=== PATIENT | male | born 2000 | race Caucasian/White ===

== ENCOUNTER 2018-04-09 07:30 | Emergency (ER) | payer OTHER ==
[2018-04-09 07:37] VITALS: BP 137/91
[2018-04-09] MEDS ORDERED: LIDOCAINE PATCH 5% TOP STA (09:21)
--- NOTE | 2018-04-09 09:24 | ED Physician Documentation ---
History of Present Illness - Stated complaint Stated Complaint: BACK PX - Chief complaint Chief Complaint: Back Pain - Additonal information Additional information: hx from pt 17 y/o AD [place] male hx back pain bent over to put on boots yesterday and felt pain and pop to lower r back near pelvic ring no fever no abd pain no saddle anesthesia no incont no numbness no weakness no radiation down the leg Review of Systems Constitutional: denies: Fever Cardiac: denies: Chest pain / pressure Respiratory: denies: Dyspnea GI: denies: Abdominal Pain : denies: Incontinent Musculoskeletal: reports: Back pain Neurologic: denies: Focal weakness, Numbness Endocrine: denies: Easy bruising / bleeding Immunocompromised: denies: Immunocompromised PD PAST MEDICAL HISTORY - Past Medical History Past Medical History: No Musculoskeletal: Chronic back pain - Present Medications Home Medications: Ambulatory Orders Medication Instructions Recorded Confirmed Cyclobenzaprine [Flexeril] 10 mg PO TID PRN #20 tablet 04/09/18 Ibuprofen [Motrin] 800 mg PO Q8H PRN #30 tablet 04/09/18 Lidocaine Patch 5% [Lidoderm Patch] 1 patch TOP DAILY PRN #10 patch 04/09/18 - Allergies Allergies/Adverse Reactions: Allergies Allergy/AdvReac Type Severity Reaction Status Date / Time No Known Drug Allergies Allergy Verified 04/09/18 07:37 - Social History Does the pt smoke?: No Smoking Status: Never smoker Does the pt drink ETOH?: No Does the pt have substance abuse?: No PD ED PE NORMAL - Vitals Vital signs reviewed: Yes - Neck Neck: Supple, no meningeal sign - Cardiac Cardiac: RRR - Respiratory Respiratory: No respiratory distress - Abdomen Abdomen: Soft, Non tender, Other (no pulsatile mass) - Back Back: No spinal TTP, Other (TTP lower right muscular near posterior iliac spine) - Derm Derm: Normal color - Neuro Neuro: Alert and oriented X 3, negative developer 2-12 intact, No motor deficit, No sensory deficit, Other (denies saddle anesthesia, hip flexion knee ext foot dorsi p lantar and great toe ext 5/5, nl sensation, neg SLR, no clonus) Results - Vitals Vitals: Vital Signs - 24 hr 04/09/18 07:34 Temperature 36.4 C L Heart Rate 678 H Respiratory 16 Rate Blood Pressure 137/91 H O2 Saturation 100 Oxygen O2 Source Room air Departure - Departure Disposition: Home, Self Care Clinical Impression: Back pain Qualifiers: Back pain location: low back pain Chronicity: acute Back pain laterality: right Sciatica presence: without sciatica Qualified Code(s): M54.5 - Low back pain Condition: Good Instructions: ED Low Back Pain Injury Follow-Up: HILDA Snow [Provider Group] Prescriptions: Cyclobenzaprine [Flexeril] 10 mg PO TID PRN #20 tablet PRN Reason: Spasms Ibuprofen [Motrin] 800 mg PO Q8H PRN #30 tablet PRN Reason: Pain Lidocaine Patch 5% [Lidoderm Patch] 1 patch TOP DAILY PRN #10 patch PRN Reason: pain Forms: Activity restrictions
== END 2018-04-09 09:39 | disposition home or self-care (01) ==
LOC: ED 07:30
DX: G89.29 Other chronic pain (principal); M54.5 Low back pain
CPT/HCPCS: 99283; A9270

== ENCOUNTER 2020-02-06 10:47 | Outpatient (CLI) | payer OTHER ==
--- NOTE | 2020-02-06 14:52 | CT Report ---
PROCEDURE: UPPER EXTREMITY WO - LT INDICATIONS: DISPLACED FRACTURE OF RADIUS HEAD TECHNIQUE: Noncontrast 3 mm axial sections acquired of the elbow, with coronal and sagittal reformats. COMPARISON: None. FINDINGS: Image quality: Excellent. Bones: There is a comminuted, minimally displaced fracture of the radial head extending into the rad iocapitellar joint. There is a 2 mm step-off at the articular surface. The included portions of the h umerus and ulna are intact. Soft tissues: There is a moderate joint effusion. The articular cartilages, ligaments, and tendons a re not well evaluated with CT. No soft tissue mass is seen. IMPRESSION: Comminuted, minimally-displaced, intra-articular fracture fracture of the radial head. There is up to 2 mm step-off at the radiocapitellar articular surface. Moderate joint effusion. Reviewed by: Thomas Germain MD on 02/06/2020 2:51 PM PDT Approved by: Thomas Germain MD on 02/06/2020 2:51 PM PDT Station ID: [id number]
== END 2020-02-06 10:48 | disposition home or self-care (01) ==
LOC: DI 10:47
PROVIDERS: ATTEND Orthopaedic Surgery
DX: S52.122A Displaced fracture of head of left radius, initial encounter for closed fracture (principal)

== ENCOUNTER 2021-07-28 10:21 | Emergency (ER) | payer OTHER ==
[2021-07-28 10:42] LABS: BASOPHILS % (AUTO) 0.3 %; EOSINOPHILS # (AUTO) 0.1 10^3/uL (0.0-0.7); EOSINOPHILS % (AUTO) 1.8 %; HCT - HEMATOCRIT 43.4 % (42.0-52.0); HGB - HEMOGLOBIN 14.7 g/dL (14.0-18.0); LYMPHOCYTES # (AUTO) 0.6 10^3/uL (1.5-3.5); MEAN CORPUSCULAR HEMOGLOBIN 28.6 pg (27.0-31.0); MEAN CORPUSCULAR HGB CONC 33.9 g/dL (32.0-36.0); MEAN CORPUSCULAR VOLUME 84.4 fL (80.0-94.0); MEAN PLATELET VOLUME 9.7 fL (7.4-11.4); MONOCYTES % (AUTO) 13.1 %; NEUTROPHILS % (AUTO) 76.5 %; PLT - PLATELET COUNT 177 10^3/uL (130-450); RED BLOOD COUNT 5.14 10^6/uL (4.70-6.10); RED CELL DISTRIBUTION WIDTH 12.2 % (12.0-15.0); WHITE BLOOD COUNT 7.8 x10^3/uL (4.8-10.8)
--- OUTSIDE RECORDS SUMMARY | 2021-07-28 10:46 | EXTERNAL MEDICAL SUMMARY RPT | Continuity of Care Document ---
:2000 Author Organization [facility] Address [address] [place] [address] Phone Allergies No information. Encounters No information. Medications No information. Problems date description facility [id number] Encounter for general adult medical [facility] abno Results No information.
[2021-07-28 11:18] LABS: GLUCOSE, URINE (UA) NEGATIVE (NEGATIVE); KETONES,URINE (UA) 15 mg/dL (NEGATIVE); LEUKOCYTE ESTERASE, URINE NEGATIVE (NEGATIVE); NITRITE,URINE NEGATIVE (NEGATIVE); OCCULT BLOOD,URINE NEGATIVE (NEGATIVE); PROTEIN,URINE NEGATIVE (NEGATIVE); UROBILINOGEN,URINE 0.2 (NORMAL) E.U./dL (NORMAL)
[2021-07-28 11:22] LABS: CLARITY,URINE CLEAR (CLEAR)
[2021-07-28 11:25] LABS: ALBUMIN 4.5 g/dL (3.2-5.5); ALBUMIN/GLOBULIN RATIO 1.2 (1.0-2.2); BILIRUBIN,TOTAL 0.9 mg/dL (0.2-1.0); CALCIUM 9.4 mg/dL (8.5-10.3); CREATININE 0.9 mg/dL (0.6-1.2); POTASSIUM 4.4 mmol/L (3.5-5.0); TOTAL PROTEIN 8.3 g/dL (6.7-8.2)
[2021-07-28 11:28] LABS: BILIRUBIN,URINE NEGATIVE (NEGATIVE); ICTOTEST,URINE NEGATIVE
[2021-07-28] MEDS ORDERED: SODIUM CHLORIDE 0.9% 1,000 ML IV STA (13:10)
--- NOTE | 2021-07-28 13:12 | ED Physician Documentation ---
PD HPI ABD PAIN - Stated complaint Stated Complaint: FEVER/STOMACH PX - Chief complaint Chief Complaint: Abd Pain - History obtained from History obtained from: Patient - Additional information Additional information: The patient comes to the emergency department with chief complaint of abdominal pain and fever for the last couple of days. Patient states that 3 days ago, he just started to feel unwell in the evening. The next day, he had abdominal pain which was centered in his right upper quadrant. He states he had eaten pizza as had his friends, but none of his friends were sick. Patient states that this morning, he felt worse and had a fever with temperature of 102. He took Tylenol this morning and is now feeling better. The patient denies cough or shortness of breath. He indicates that the pain is in his epigastric and medial right upper quadrant. No diarrhea or constipation. No back pain. No dysuria or hematuria. No respiratory symptoms. The patient states that he has not had any sick contacts. He is vaccinated for COVID. No other complaints at this time. Review of Systems Ten Systems: 10 systems reviewed and negative Constitutional: reports: Fever Eyes: reports: Reviewed and negative Ears: reports: Reviewed and negative Nose: reports: Reviewed and negative Throat: reports: Reviewed and negative Cardiac: reports: Reviewed and negative Respiratory: reports: Reviewed and negative GI: reports: Abdominal Pain. denies: Nausea, Vomiting, Diarrhea : reports: Reviewed and negative Skin: reports: Reviewed and negative Musculoskeletal: reports: Reviewed and negative Neurologic: reports: Reviewed and negative Psychiatric: reports: Reviewed and negative Endocrine: reports: Reviewed and negative Immunocompromised: reports: Reviewed and negative PD PAST MEDICAL HISTORY - Past Medical History Musculoskeletal: Chronic back pain - Present Medications Home Medications: Ambulatory Orders Medication Instructions Recorded Confirmed Acetaminophen/Cod 300/30 [Tylenol 1 each PO Q4-6H 02/06/20 02/06/20 #3] - Allergies Allergies/Adverse Reactions: Allergies Allergy/AdvReac Type Severity Reaction Status Date / Time No Known Drug Allergies Allergy Verified 07/28/21 10:28 - Social History Does the pt smoke?: No Smoking Status: Never smoker Does the pt drink ETOH?: No Does the pt have substance abuse?: No PD ED PE NORMAL - Vitals Vital signs reviewed: Yes - General General: Alert and oriented X 3, No acute distress, Well developed/nourished - HEENT HEENT: Atraumatic, PERRL, EOMI, Moist mucous membranes - Neck Neck: Supple, no meningeal sign - Cardiac Cardiac: RRR, No murmur, Strong equal pulses - Respiratory Respiratory: No respiratory distress, Clear bilaterally - Abdomen Abdomen: Soft, Non distended, Other (Moderate epigastric tenderness no rebound or guarding.) - Back Back: No CVA TTP - Derm Derm: Normal color, Warm and dry, No rash - Extremities Extremities: No deformity, No edema, No calf tenderness / cord - Neuro Neuro: Alert and oriented X 3, timber packer 2-12 intact, Normal speech - Psych Psych: Normal mood, Normal affect Results - Vitals Vitals: Vital Signs - 24 hr 07/28/21 07/28/21 07/28/21 10:26 12:59 14:15 Temperature 37.7 C 36.9 C 36.9 C Heart Rate 100 80 79 Respiratory 16 14 16 Rate Blood Pressure 135/71 H 128/77 134/74 H O2 Saturation 97 98 100 Oxygen O2 Source Room air - Labs Labs: Laboratory Tests 07/28/21 07/28/21 07/28/21 10:38 10:38 11:05 WBC 7.8 RBC 5.14 Hgb 14.7 Hct 43.4 MCV 84.4 MCH 28.6 MCHC 33.9 RDW 12.2 Plt Count 177 MPV 9.7 Neut # (Auto) 6.0 Lymph # (Auto) 0.6 L [place] # (Auto) 1.0 Eos # (Auto) 0.1 Baso # (Auto) 0.0 Absolute Nucleated RBC 0.00 Nucleated RBC % 0.0 Sodium 135 Potassium 4.4 Chloride 101 Carbon Dioxide 24 Anion Gap 10.0 BUN 14 Creatinine 0.9 Estimated GFR (MDRD) 105 Glucose 96 Calcium 9.4 Total Bilirubin 0.9 AST 21 ALT 24 Alkaline Phosphatase 60 Total Protein 8.3 H Albumin 4.5 Globulin 3.8 Albumin/Globulin Ratio 1.2 Lipase 26 Urine Color YELLOW Urine Clarity CLEAR Urine pH 6.0 Ur Specific [place] 1.025 Urine Protein NEGATIVE Urine Glucose (UA) NEGATIVE Urine Ketones 15 H Urine Occult Blood NEGATIVE Urine Nitrite NEGATIVE Urine Bilirubin NEGATIVE Urine Urobilinogen 0.2 (NORMAL) Ur Leukocyte Esterase NEGATIVE Ur Microscopic Review NOT INDICATED Urine Culture Comments NOT INDICATED Nasal Adenovirus (PCR) Nasal B. parapertussis DNA (PCR) Nasal Coronavir 229E PCR Nasal Coronavir HKU1 PCR Nasal Coronavir NL63 PCR Nasal Coronavir OC43 PCR Nasal Enterovir/Rhinovir PCR Nasal Influenza B PCR Nasal Influenza A PCR Nasal Parainfluen 1 PCR Nasal Parainfluen 2 PCR Nasal Parainfluen 3 PCR Nasal Parainfluen 4 PCR Nasal RSV (PCR) Nasal B.pertussis DNA PCR Nasal C.pneumoniae (PCR) [place] Human Metapneumo PCR Nasal M.pneumoniae (PCR) Nasal SARS-CoV-2 (PCR) 07/28/21 13:18 WBC RBC Hgb Hct MCV MCH MCHC RDW Plt Count MPV Neut # (Auto) Lymph # (Auto) [place] # (Auto) Eos # (Auto) Baso # (Auto) Absolute Nucleated RBC Nucleated RBC % Sodium Potassium Chloride Carbon Dioxide Anion Gap BUN Creatinine Estimated GFR (MDRD) Glucose Calcium Total Bilirubin AST ALT Alkaline Phosphatase Total Protein Albumin Globulin Albumin/Globulin Ratio Lipase Urine Color Urine Clarity Urine pH Ur Specific [place] Urine Protein Urine Glucose (UA) Urine Ketones Urine Occult Blood Urine Nitrite Urine Bilirubin Urine Urobilinogen Ur Leukocyte Esterase Ur Microscopic Review Urine Culture Comments Nasal Adenovirus (PCR) NOT DETECTED Nasal B. parapertussis DNA (PCR) NOT DETECTED Nasal Coronavir 229E PCR NOT DETECTED Nasal Coronavir HKU1 PCR NOT DETECTED Nasal Coronavir NL63 PCR NOT DETECTED Nasal Coronavir OC43 PCR NOT DETECTED Nasal Enterovir/Rhinovir PCR NOT DETECTED Nasal Influenza B PCR NOT DETECTED Nasal Influenza A PCR NOT DETECTED Nasal Parainfluen 1 PCR NOT DETECTED Nasal Parainfluen 2 PCR NOT DETECTED Nasal Parainfluen 3 PCR NOT DETECTED Nasal Parainfluen 4 PCR NOT DETECTED Nasal RSV (PCR) NOT DETECTED Nasal B.pertussis DNA PCR NOT DETECTED Nasal C.pneumoniae (PCR) NOT DETECTED [place]to Human Metapneumo PCR NOT DETECTED Nasal M.pneumoniae (PCR) NOT DETECTED Nasal SARS-CoV-2 (PCR) NOT DETECTED - Rads (name of study) CT abdomen pelvis Radiology: Final report received, EMP read indepedently, See rad report (Minimal gastric wall thickening with mesenteric fat stranding suggestive of gastritis.) PD MEDICAL DECISION MAKING - ED course Complexity details: reviewed results, re-evaluated patient, considered differential, d/w patient ED course: Patient was worked up with labs and CT scan. Labs were unremarkable. CT showed some mild inflammation of the stomach but otherwise unremarkable. The patient was afebrile in the emergency department. I discussed with him that he most likely has a viral illness, that he will be called, should his viral panel come back positive for anything. We have discussed fever management at home and the usual indications for return. Departure - Departure Disposition: 01 Home, Self Care Clinical Impression: Febrile illness, acute Abdominal pain Qualifiers: Abdominal location: epigastric Qualified Code(s): R10.13 - Epigastric pain Condition: Stable Instructions: ED Fever Unconf Cause, ED PUD Vs Gastritis, ED Viral Syndrome Comments: Your labs look good, and do not show any evidence of a severe infection. The CT scan of your abdomen and pelvis shows some inflammation of your stomach which is most likely the cause of the pain you are having. There is no other evidence of any organ inflammation or infection. Most likely, your fever and feeling generally unwell is the result of a viral infection, of which there are many going around right now. A viral panel has been sent and tests for a number of viruses that we see commonly, including Covid and influenza. However, there are many other viruses in the environment that can cause illness that we do not have a specific test for. If your viral panel comes back with any positive results, we will call you. This will most likely be completed in the next 3 to 4 hours. If you would like to monitor your results online from home, you may go to the hospital website at [email or web address], click on the "my [email or web address] tab" and send it for the patient portal. You should take ibuprofen and/or Tylenol for your fevers and drink plenty of fluids and get plenty of rest. Please follow-up with your primary care physician as needed. Discharge Date/Time: 07/28/21 15:12
[2021-07-28] MEDS ORDERED: IOVERSOL 320 100 ML VIAL IVP ONE ×2 (14:00→16:32)
[2021-07-28 14:17] VITALS: BP 134/74
--- NOTE | 2021-07-28 14:32 | CT Report ---
PROCEDURE: Abdomen/Pelvis W INDICATIONS: R abd pain/fever CONTRAST: IV CONTRAST: Optiray 320 ml: 100 PO CONTRAST: *NO PO CONTRAST TECHNIQUE: After the administration of contrast, 5 mm thick sections acquired from the diaphragms to the symphy sis. 5 mm thick coronal and sagittal reformats were acquired. For radiation dose reduction, the fol lowing was used: automated exposure control, adjustment of mA and/or kV according to patient size. COMPARISON: None. FINDINGS: Image quality: Excellent. ABDOMEN: Lung bases: Lung bases are clear. Heart size is normal. Solid organs: Liver is normal in size and enhancement. Marked splenomegaly is seen, no discrete sple cecilia lesion is noted. Gallbladder is within normal limits Biliary system is non dilated. Pancreas en hances normally. No adrenal nodules. Kidneys demonstrate normal size and enhancement, without hydro nephrosis. Peritoneum and bowel: There is significant wall thickening involving mid to distal portion of stomach with adjacent mesenteric fat stranding along greater curvature of stomach concerning for infectious or inflammatory gastritis. There is no small bowel or colon wall thickening. No free fluid or free ai r. No abscess collection. Appendix is visualized and is within normal limits. Mild fecal stasis in th e colon is seen. Nodes and vessels: No retroperitoneal or mesenteric adenopathy by size criteria. Aorta and inferior vena cava are normal in size. Miscellaneous: No ventral hernias. PELVIS: Genitourinary: Bladder wall thickness is normal. Miscellaneous: No inguinal hernias or adenopathy. Bones: No suspicious bony lesions. No vertebral body compression fractures. IMPRESSION: 1. Mid to distal gastric wall thickening with adjacent mesenteric fat stranding concerning for infect ious or inflammatory gastritis. No bowel obstruction. No gastric or small bowel wall thickening. Norm al appendix. No free fluid or free air. Mild constipation. 2. Marked splenomegaly, no discrete splenic lesion. Reviewed by: Braydon Slaughter MD on 07/28/2021 2:30 PM PDT Approved by: Braydon Slaughter MD on 07/28/2021 2:30 PM PDT Station ID: [id number]
[2021-07-28 15:55] LABS: B. PARAPERTUSSIS- RESP PCR PAN NOT DETECTED; B. PERTUSSIS- RESP PCR PANEL NOT DETECTED; C. PNEUMONIAE- RESP PCR PANEL NOT DETECTED; CORONAVIRUS 229E-RESP PCR NOT DETECTED; CORONAVIRUS HKU1-RESP PCR NOT DETECTED; CORONAVIRUS NL63-RESP PCR NOT DETECTED; CORONAVIRUS OC43-RESP PCR NOT DETECTED; HUMAN METAPNEUMOVIRUS NOT DETECTED; INFLUENZA A- RESP PCR PANEL NOT DETECTED; INFLUENZA B - RESP PCR PANEL NOT DETECTED; M. PNEUMONIAE- RESP PCR PANEL NOT DETECTED; PARAINFLUENZA VIRUS 1 NOT DETECTED; PARAINFLUENZA VIRUS 2 NOT DETECTED; PARAINFLUENZA VIRUS 3 NOT DETECTED; PARAINFLUENZA VIRUS 4 NOT DETECTED; RHINOVIRUS/ENTEROVIRUS NOT DETECTED; RSV- RESP PCR PANEL NOT DETECTED; SARS-CoV-2 -RESP PCR PANEL NOT DETECTED
== END 2021-07-28 15:12 | disposition home or self-care (01) ==
LOC: ED 10:21
DX: R50.9 Fever, unspecified (principal); R10.13 Epigastric pain; Z20.822 Contact with and (suspected) exposure to COVID-19
CPT/HCPCS: 0202U; 36415; 74177; 80053; 81003; 83690; 85025; 99282; 99284; Q9967; 81001; 87086